=== PATIENT | male | born 1995 | race Caucasian/White ===

== ENCOUNTER 2018-12-28 21:35 | Inpatient (IN) | payer BC ==
[~2018-12-28] VITALS: Ht 177.8 cm; Wt 99.5 kg
[~2018-12-28 21:35] MED LIST: IBUP600T
[2018-12-28] MEDS ORDERED: PEG1POW PO (21:40)
[2018-12-28] MEDS ORDERED: ANUC25SU PR (21:40)
[2018-12-28] MEDS ORDERED: ACET-683 PO (21:40)
[2018-12-28] MEDS ORDERED: NS 1,000 ML IV ONE (23:00)
[2018-12-28] MEDS ORDERED: ACETAMINOPHEN TAB 650MG DOSE (2X325MG) PO ONE (23:00)
[2018-12-28 23:37] LABS: BASO # 0.1 10^3/uL (0.0-0.2); BASO % 0.3 % (0.0-1.0); EOS % 0.2 % (0.0-3.0); HEMATOCRIT 44.6 % (42.0-52.0); HEMOGLOBIN 15.9 g/dl (13.5-17.5); LYMPH % 8.9 % (24.0-44.0); MEAN CORPUSCULAR HEMOGLOBIN 32.5 pg (27.0-33.0); MEAN CORPUSCULAR HGB CONC 35.7 g/dl (32.0-36.5); MEAN CORPUSCULAR VOLUME 91.2 fl (80.0-96.0); MONO # 1.8 10^3/uL (0.0-0.8); NEUTROPHILS # 18.2 10^3/uL (1.8-7.7); PLATELET COUNT, AUTOMATED 323 10^3/uL (150-450); RED BLOOD COUNT 4.89 10^6/uL (4.30-6.10); WHITE BLOOD COUNT 22.2 10^3/uL (4.0-10.0)
[2018-12-29 00:01] LABS: ALBUMIN 4.2 GM/DL (3.2-5.2); ALT/SGPT 67 U/L (12-78); BILIRUBIN,DIRECT 0.2 MG/DL (0.0-0.2); BILIRUBIN,TOTAL 0.6 MG/DL (0.2-1.0); BLOOD UREA NITROGEN 12 MG/DL (7-18); CALCIUM LEVEL 9.1 MG/DL (8.5-10.1); CARBON DIOXIDE LEVEL 25 MEQ/L (21-32); CHLORIDE LEVEL 102 MEQ/L (98-107); CREATININE FOR GFR 0.92 MG/DL (0.70-1.30); GLOMERULAR FILTRATION RATE > 60.0 (>60); GLUCOSE, FASTING 87 MG/DL (70-100); LIPASE 115 U/L (73-393); POTASSIUM SERUM 4.1 MEQ/L (3.5-5.1); SODIUM LEVEL 136 MEQ/L (136-145); TOTAL PROTEIN 8.5 GM/DL (6.4-8.2)
[2018-12-29] MEDS ORDERED: ISOVUE-370 76% 100ML VIAL (Q9967) As Ordered ONE (00:08)
[2018-12-29] MEDS ORDERED: metroNIDAZOLE 500 MG in APPROPRIATE DILUENT 1 EA IV ONE (01:00)
[2018-12-29] MEDS ORDERED: LevoFLOXacin IV 750 MG in APPROPRIATE DILUENT 1 EA IV ONE (01:00)
--- NOTE | 2018-12-29 01:08 | REPVR ---
EXAM: CT Pelvis With Contrast EXAM DATE/TIME: 12/28/2018 11:01 PM CLINICAL HISTORY: 23 years old, male; Perianal pain; Additional info: R/O abscess TECHNIQUE: Imaging protocol: Axial computed tomography images of the pelvis with intravenous contrast. Coronal and sagittal reformatted images were created and reviewed. Radiation optimization: All CT scans at this facility use at least one of these dose optimization techniques: automated exposure control; mA and/or kV adjustment per patient size (includes targeted exams where dose is matched to clinical indication); or iterative reconstruction. Contrast volume: 100 ml; Contrast route: AC COMPARISON: No relevant prior studies available. FINDINGS: Stomach and bowel: The stomach was not imaged. The visualized small bowel and colon are unremarkable. Appendix: Normal. No evidence of appendicitis. Bladder: The partially distended urinary bladder is unremarkable. No stones or masses are seen in the bladder. Reproductive: The prostate gland and seminal vesicles are unremarkable. Intraperitoneal space: Unremarkable. No free air. No fluid collection. Lymph nodes: Normal. No enlarged lymph nodes. Bones/joints: There is no fracture or dislocation. The hip joints, sacroiliac joints, and pubic symphysis are unremarkable. There is no suspicious osteolytic or osteoblastic lesion. Soft tissues: There is a 1 cm x 3.7 cm x 3.3 cm perianal fluid collection located adjacent to the 6:30 o'clock position of the anus just to the right of the gluteal cleft with surrounding inflammatory fat stranding and overlying skin thickening, which is compatible with a perianal abscess (image 73 of the axial series 201 and images 81-82 of the coronal series 202). IMPRESSION: 1 cm x 3.7 cm x 3.3 cm perianal abscess as described above. Electronically signed by: Colton Ellsworth On 12/29/2018 01:07:15 AM
[2018-12-29] MEDS ORDERED: IBUPROFEN 800 MG TAB PO ONE (01:30)
[2018-12-29] MEDS ORDERED: KETOROLAC 30 MG/ML VIAL (J1885) IV ONE (02:00)
[2018-12-29] MEDS ORDERED: ACET-897 PO (02:16)
[2018-12-29] MEDS ORDERED: HYDR25SU23 PR (02:16)
[2018-12-29] MEDS ORDERED: MIRA1POW3 PO (02:16)
[2018-12-29] MEDS ORDERED: ACETAMINOPHEN TAB 650MG DOSE (2X325MG) PO PRN (02:45)
[2018-12-29] MEDS ORDERED: IBUPROFEN 800 MG TAB PO PRN (03:00)
[2018-12-29] MEDS ORDERED: KETOROLAC 30 MG/ML VIAL (J1885) IV PRN (03:15)
[2018-12-29] MEDS ORDERED: ACETAMINOPHEN 500 MG TAB PO PRN (03:15)
--- NOTE | 2018-12-29 03:24 | HPEPDOC ---
[facility] Medical History & Physical Date of Admission December 29, 2018 Date of Service: December 29, 2018 Attending Physician: MELANI CHAVEZ MD History and Physical CHIEF COMPLAINT: Anorectal abscess HISTORY OF PRESENT ILLNESS: Patient is a an otherwise healthy 23-year-old white male who presents to the emergency department complaining of one-week history increasing perineal pain and discomfort. He states that the pain became noticeable on 12/24/18. At that time, he noted that it was painful to ambulate or to sit. Pain is described as sharp and constant.. Throughout the subsequent days the patient's pain gradually increased even waking him from sleep. Stooling has also been quite difficult due to pain. Patient presented to urgent care on 12/26 and was treated for hemo rrhoids. The following days the patient's pain discomfort continued to increase. On the evening of 12/28/18 patient was noted to be febrile and subsequently presented to the emergency department for further evaluation. In the emergency department, basic labs revealed a leukocytosis of 22.2, a tempe rature of 100.8F. CT imaging indicated a perianal abscess. Patient was given ketorolac for pain control. I&D of the abscess was performed. No packing was placed. IV antibiotics with levofloxacin and metronidazole. The hospitalist team was contacted to the patient for further IV antibiotic therapy and surgical consult. PAST MEDICAL HISTORY: Patient denies any significant past medical history PAST SURGICAL HISTORY: Left ACL surgery, microfracture repair of the left knee SOCIAL HISTORY: Marital status: Single Resides in: Resides in [place] with his family Employment: Patient is currently employed Tobacco use: Denies any tobacco use ETOH: Denies alcohol use Illicit drug use: Denies illicit drug use FAMILY HISTORY: Noncontributory given patient's presenting complaint ALLERGIES: Please see below. REVIEW OF SYSTEMS: CONSTITUTIONAL: Patient reports a 1 day history of low-grade fevers. Denies any night sweats, chills, generalized fatigue, changes in weight HEENT: Patient denies any headaches, changes in vision, difficulty swallowing CARDIOVASCULAR: Has chest pain/discomfort, palpitations RESPIRATORY: Patient denies any shortness of breath, difficulty breathing, recent cough, no wheezing GASTROINTESTINAL: Reports intermittent nausea over the last 2 days, resolved upon admission. Denies any upset stomach or abdominal cramping, no diarrhea or constipation GENITOURINARY: Has any difficulty urinating SKIN: No new rashes or new/evolving skin lesions MUSCULOSKELETAL: No muscle or joint discomfort NEUROLOGICAL: Denies any numbness or tingling, weakness, focal neurologic deficits PSYCHIATRIC: Denies any psychiatric history HOME MEDICATIONS: Patient does not regular take home medications PHYSICAL EXAMINATION: VITAL SIGNS: Please see below. GENERAL APPEARANCE: She was interviewed and examined in the emergency department. Patient was found to be lying comfortably in his emergency bed wearing hospital clothing. His mother was at bedside. Patient was not in any acute distress. Patient was alert and oriented 3, able to answer questions appropriately and actively participate in his care. HEENT: Normocephalic, atraumatic, EOMI, mucous membranes moist, sclera nonicteric CARDIOVASCULAR: Regular rate and rhythm, normal S1 and S2, no murmurs gallops or rubs LUNGS: There are to auscultation bilaterally ABDOMEN: Soft, nontender, nondistended, bowel sounds present throughout PERINEAL: Patient is status post anorectal abscess incision and drainage. Gauze and dressings noted, minimal continued drainage. Surrounding erythema appreciated. Area is painful to palpation. EXTREMITIES: Patient is in to move all extremities extremities equally bilaterally NEUROLOGICAL: No focal neurologic deficits, she is at baseline mentation per mother was at bedside PSYCHIATRIC: Affect are appropriate given patient's current medical conditions LABORATORY DATA: See below. IMAGING: Pelvis CT (12/28/18): 1 cm x 3.7 cm x 3.3 cm perineal abscess with fluid collection located adjacent to the 6:30 o'clock position of the anus just right of the gluteal cleft with surrounding inflammatory fat stranding and overlying skin thickness. MICROBIOLOGY: Venous blood cultures are pending Abscess fluid culture pending Gram stain and wound culture pending ASSESSMENT: Patient is a 23-year-old, otherwise healthy, white male who presents emergency department with a one-week history of increasing perineal pain. In the emergency department patient received a pelvic CT which confirmed the presence of a perianal abscess. Patient underwent incision and drainage given IV antibiotics. Hospitalist team was contacted to admit the patient for further IV antibiotic therapy. Surgery was consulted and will be seeing the patient in the morning. PLAN: Perianal abscess -Abscess confirmed with pelvic CT imaging -CBC demonstrated a leukocytosis. Patient given levofloxacin and metronidazole in the emergency department -We will continue IV antibiotic therapy with Unasyn IV every 6, 1 cultures are pending which will allow for more targeted antibiotic therapy -Ibuprofen as needed for pain control -Surgery was consulted and will be in the patient in the morning DVT prophylaxis: Teds and sequentials CODE STATUS: Full code Vital Signs Vital Signs Date Time Temp Pulse Resp B/P (MAP) Pulse Ox O2 Delivery O2 Flow Rate FiO2 12/29/18 02:31 99.1 78 20 136/83 (100) 98 Room Air Laboratory Data Labs 24H Laboratory Tests 2 12/28/18 23:22: Immature Granulocyte % (Auto) 0.6, White Blood Count 22.2H, Red Blood Count 4.89, Hemoglobin 15.9, Hematocrit 44.6, Mean Corpuscular Volume 91.2, Mean Corpuscular Hemoglobin 32.5, Mean Corpuscular Hemoglobin Concent 35.7, Red Cell Distribution Width 12.2, Platelet Count 323, Neutrophils (%) (Auto) 82.0H, Lymphocytes (%) (Auto) 8.9L, Monocytes (%) (Auto) 8.0H, Eosinophils (%) (Auto) 0.2, Basophils (%) (Auto) 0.3, Neutrophils # (Auto) 18.2H, Lymphocytes # (Auto) 2.0, Monocytes # (Auto) 1.8H, Eosinophils # (Auto) 0.0, Basophils # (Auto) 0.1, Nucleated Red Blood Cells % (auto) 0.0, Anion Gap 9, Glomerular Filtration Rate > 60.0, Lactic Acid Level 1.1, Calcium Level 9.1, Aspartate Amino Transf (AST/SGOT) 38H, Alanine Aminotransferase (ALT/SGPT) 67, Alkaline Phosphatase 100, Total Bilirubin 0.6, Direct Bilirubin 0.2, Total Protein 8.5H, Albumin 4.2, Albumin/Globulin Ratio 0.98L, Lipase 115 12/28/18 23:24: Urine Color YELLOW, Urine Appearance CLEAR, Urine pH 5.0, Urine Specific [place] 1.027, Urine Protein NEGATIVE, Urine Glucose (UA) NEGATIVE, Urine Ketones 2+H, Urine Blood NEGATIVE, Urine Nitrite NEGATIVE, Urine Bilirubin NEGATIVE, Urine Urobilinogen 2.0H, Urine Leukocyte Esterase NEGATIVE, Urine WBC (Auto) 1, Urine RBC (Auto) 2, Urine Hyaline Casts (Auto) 0, Urine Bacteria (Auto) NEGATIVE, Urine Squamous Epithelial Cells 0, Urine Mucus (Auto) LARGE, Urine Sperm (Auto) CBC/BMP Laboratory Tests 12/28/18 23:22 Red Blood Count 4.89, Mean Corpuscular Volume 91.2, Mean Corpuscular Hemoglobin 32.5, Mean Corpuscular Hemoglobin Concent 35.7, Red Cell Distribution Width 12.2, Neutrophils (%) (Auto) 82.0 H, Lymphocytes (%) (Auto) 8.9 L, Monocytes (%) (Auto) 8.0 H, Eosinophils (%) (Auto) 0.2, Basophils (%) (Auto) 0.3, Neutrophils # (Auto) 18.2 H, Lymphocytes # (Auto) 2.0, Monocytes # (Auto) 1.8 H, Eosinophils # (Auto) 0.0, Basophils # (Auto) 0.1 Microbiology Microbiology 12/28/18 Blood Culture, Received Pending 12/28/18 Blood Culture, Received Pending 12/28/18 Anaerobic Culture, Received Pending 12/28/18 Gram Stain, Received Pending 12/28/18 Wound Culture, Received Pending Home Medications Scheduled Hydrocortisone Acetate (Hydrocortisone Acetate) 25 Mg Supp.rect, 25 MG DC BID Polyethylene Glycol 3350 (Miralax) 17 Gm Powd.pack, 17 GM PO DAILY Scheduled PRN Acetaminophen (Tylenol Extra Strength) 500 Mg Tablet, 1,000 MG PO Q6H PRN for PAIN / FEVER Allergies Coded Allergies: No Known Allergies (Verified , 04/22/09) A-FIB/CHADSVASC A-FIB History Current/History of A-Fib/PAF?: No GME ATTESTATION GME ATTESTATION My faculty preceptor for this patient encounter was physically present during the encounter and was fully available. All aspects of the patient interview, examination, medical decision making process, and medical care plan development were reviewed and approved by the faculty preceptor. The faculty preceptor is aware and concurs with the plan as stated in the body of this note and will attest to such by his/her cosignature. ATTENDING NOTE I have personally interviewed the patient and have done a physical examination. I have reviewed the resident's above documentation and agree with the assessment and plan. PHILLIP POLLARD DO December 29, 2018 03:24 MELANI CHAVEZ MD December 30, 2018 00:09
[2018-12-29] MEDS ORDERED: AMPICILLIN SOD/SULBACTAM SOD 1.5 GM in D5W MINI-BAG PLUS 50 ML IV SCH (04:00)
[2018-12-29 05:00] VITALS: BP 138/66
[2018-12-29 07:03] LABS: BASO # 0.1 10^3/uL (0.0-0.2); BASO % 0.3 % (0.0-1.0); EOS # 0.1 10^3/uL (0.0-0.50); EOS % 0.4 % (0.0-3.0); HEMATOCRIT 39.8 % (42.0-52.0); HEMOGLOBIN 14.1 g/dl (13.5-17.5); LYMPH # 2.1 10^3/uL (1.5-6.5); MEAN CORPUSCULAR HEMOGLOBIN 32.5 pg (27.0-33.0); MEAN CORPUSCULAR HGB CONC 35.4 g/dl (32.0-36.5); MEAN CORPUSCULAR VOLUME 91.7 fl (80.0-96.0); MONO # 1.6 10^3/uL (0.0-0.8); MONO % 9.2 % (0.0-5.0); NEUTROPHILS # 13.8 10^3/uL (1.8-7.7); NEUTROPHILS % 77.6 % (36.0-66.0); PLATELET COUNT, AUTOMATED 245 10^3/uL (150-450); RED BLOOD COUNT 4.34 10^6/uL (4.30-6.10); WHITE BLOOD COUNT 17.8 10^3/uL (4.0-10.0)
[2018-12-29 07:31] LABS: BLOOD UREA NITROGEN 11 MG/DL (7-18); CALCIUM LEVEL 8.6 MG/DL (8.5-10.1); CARBON DIOXIDE LEVEL 27 MEQ/L (21-32); CHLORIDE LEVEL 104 MEQ/L (98-107); CREATININE FOR GFR 0.86 MG/DL (0.70-1.30); GLOMERULAR FILTRATION RATE > 60.0 (>60); GLUCOSE, FASTING 91 MG/DL (70-100); POTASSIUM SERUM 3.9 MEQ/L (3.5-5.1); SODIUM LEVEL 137 MEQ/L (136-145)
[2018-12-29 08:00] VITALS: BP 130/74
[2018-12-29] MEDS: metroNIDAZOLE 500 MG in APPROPRIATE DILUENT 1 EA IV SCH ×2 (08:08→14:59)
--- NOTE | 2018-12-29 09:18 | IPNPDOC ---
Subjective Date Seen The patient was seen on 12/29/18. Subjective General: Denies: Chills Constitutional: Denies: Chills, Fever Pulmonary: Denies: Dyspnea Cardiovascular: Denies: Chest Pain, Palpitations, Lt Headedness Gastrointestinal: Denies: Nausea, Vomiting, Abdominal Pain, Diarrhea, Constipation, Melena, Hematochezia Musculoskeletal: Reports: Other Symptoms (denies neck stiffness); Denies: Neck Pain Neurological: Denies: Change in speech Other systems draining gluteal cleft abscess with drainage pus and blood mixed Objective Physical Examination General Exam: Positive: Alert, Cooperative, No Acute Distress Eye Exam: Positive: Conjunctiva & lids normal; Negative: Sclera icteric ENT Exam: Positive: Atraumatic, Mucous membr. moist/pink Neck Exam: Positive: Supple Chest Exam: Positive: Clear to auscultation, Normal air movement; Negative: Rales, Rhonchi, Wheezing Heart Exam: Positive: Rate Normal, Regular Rhythm, Normal S1, Normal S2; Negative: Murmurs Abdomen Exam: Positive: Normal bowel sounds, Soft; Negative: Tenderness Extremity Exam: Positive: Normal pulses Skin Exam: Positive: Nl turgor and temperature Neuro Exam: Positive: Normal Speech, Sensation Intact Psych Exam: Positive: Mental status NL, Mood NL, Memory Intact, Oriented x 3 A-FIB/CHADSVASC A-FIB History Current/History of A-Fib/PAF?: No VS, I&O, 24H, Fishbone Vital Signs/I&O Vital Signs Date Time Temp Pulse Resp B/P (MAP) Pulse Ox O2 Delivery O2 Flow Rate FiO2 12/29/18 08:00 97.5 60 18 130/74 (92) 98 12/29/18 04:24 Room Air I&O- Last 24 Hours up to 6 AM 12/29/18 06:00 Intake Total 0 ml Balance 0 ml Laboratory Data 24H LABS Laboratory Tests 2 12/28/18 23:22: Immature Granulocyte % (Auto) 0.6, White Blood Count 22.2H, Red Blood Count 4.89, Hemoglobin 15.9, Hematocrit 44.6, Mean Corpuscular Volume 91.2, Mean Corpuscular Hemoglobin 32.5, Mean Corpuscular Hemoglobin Concent 35.7, Red Cell Distribution Width 12.2, Platelet Count 323, Neutrophils (%) (Auto) 82.0H, Lymphocytes (%) (Auto) 8.9L, Monocytes (%) (Auto) 8.0H, Eosinophils (%) (Auto) 0.2, Basophils (%) (Auto) 0.3, Neutrophils # (Auto) 18.2H, Lymphocytes # (Auto) 2.0, Monocytes # (Auto) 1.8H, Eosinophils # (Auto) 0.0, Basophils # (Auto) 0.1, Nucleated Red Blood Cells % (auto) 0.0, Anion Gap 9, Glomerular Filtration Rate > 60.0, Lactic Acid Level 1.1, Calcium Level 9.1, Aspartate Amino Transf (AST/SGOT) 38H, Alanine Aminotransferase (ALT/SGPT) 67, Alkaline Phosphatase 100, Total Bilirubin 0.6, Direct Bilirubin 0.2, Total Protein 8.5H, Albumin 4.2, Albumin/Globulin Ratio 0.98L, Lipase 115 12/28/18 23:24: Urine Color YELLOW, Urine Appearance CLEAR, Urine pH 5.0, Urine Specific [place] 1.027, Urine Protein NEGATIVE, Urine Glucose (UA) NEGATIVE, Urine Ketones 2+H, Urine Blood NEGATIVE, Urine Nitrite NEGATIVE, Urine Bilirubin NEGATIVE, Urine Urobilinogen 2.0H, Urine Leukocyte Esterase NEGATIVE, Urine WBC (Auto) 1, Urine RBC (Auto) 2, Urine Hyaline Casts (Auto) 0, Urine Bacteria (Auto) NEGATIVE, Urine Squamous Epithelial Cells 0, Urine Mucus (Auto) LARGE, Urine Sperm (Auto) 12/29/18 06:43: Immature Granulocyte % (Auto) 0.5, White Blood Count 17.8H, Red Blood Count 4.34, Hemoglobin 14.1, Hematocrit 39.8L, Mean Corpuscular Volume 91.7, Mean Corpuscular Hemoglobin 32.5, Mean Corpuscular Hemoglobin Concent 35.4, Red Cell Distribution Width 12.0, Platelet Count 245, Neutrophils (%) (Auto) 77.6H, Lymphocytes (%) (Auto) 12.0L, Monocytes (%) (Auto) 9.2H, Eosinophils (%) (Auto) 0.4, Basophils (%) (Auto) 0.3, Neutrophils # (Auto) 13.8H, Lymphocytes # (Auto) 2.1, Monocytes # (Auto) 1.6H, Eosinophils # (Auto) 0.1, Basophils # (Auto) 0.1, Nucleated Red Blood Cells % (auto) 0.0, Anion Gap 6L, Glomerular Filtration Rate > 60.0, Calcium Level 8.6, Blood Urea Nitrogen 11, Creatinine 0.86, Sodium Level 137, Potassium Level 3.9, Chloride Level 104, Carbon Dioxide Level 27 CBC/BMP Laboratory Tests 12/28/18 23:22 Red Blood Count 4.89, Mean Corpuscular Volume 91.2, Mean Corpuscular Hemoglobin 32.5, Mean Corpuscular Hemoglobin Concent 35.7, Red Cell Distribution Width 12.2, Neutrophils (%) (Auto) 82.0 H, Lymphocytes (%) (Auto) 8.9 L, Monocytes (%) (Auto) 8.0 H, Eosinophils (%) (Auto) 0.2, Basophils (%) (Auto) 0.3, Neutrophils # (Auto) 18.2 H, Lymphocytes # (Auto) 2.0, Monocytes # (Auto) 1.8 H, Eosinophils # (Auto) 0.0, Basophils # (Auto) 0.1 12/29/18 06:43 Red Blood Count 4.34, Mean Corpuscular Volume 91.7, Mean Corpuscular Hemoglobin 32.5, Mean Corpuscular Hemoglobin Concent 35.4, Red Cell Distribution Width 12.0, Neutrophils (%) (Auto) 77.6 H, Lymphocytes (%) (Auto) 12.0 L, Monocytes (%) (Auto) 9.2 H, Eosinophils (%) (Auto) 0.4, Basophils (%) (Auto) 0.3, Neutrophils # (Auto) 13.8 H, Lymphocytes # (Auto) 2.1, Monocytes # (Auto) 1.6 H, Eosinophils # (Auto) 0.1, Basophils # (Auto) 0.1, Calcium Level 8.6 Microbiology Microbiology 12/28/18 Blood Culture, Received Pending 12/28/18 Blood Culture, Received Pending 12/28/18 Anaerobic Culture, Received Pending 12/28/18 Gram Stain, Received Pending 12/28/18 Wound Culture, Received Pending OSMEL CUETO DO December 29, 2018 09:18
[2018-12-29] MEDS: AMPICILLIN SOD/SULBACTAM SOD 1.5 GM in D5W MINI-BAG PLUS 50 ML IV SCH ×3 (10:11→21:29)
--- NOTE | 2018-12-29 10:14 | IPNPDOC ---
Text Note Date of Service The patient was seen on 12/29/18. NOTE Patient seen this morning. He was admitted last night for fever from perianal abscess/sepsis. It looks like the abscess started spontaneously draining last night and the emergency room provider was able to squeeze out the bulk of the abscess from the right perianal area. Still some leftover cellulitis and mild induration on the right gluteal area but not much drainage left. I was placing pressure around the tiny opening and not able to express any further significant drainage anymore. At this point, I think the abscess even though the opening is small is sufficiently drained. The only draw back I could see is that the tiny opening may close too fast and allow the fluid to reaccumulate. If it does happen, he can follow up in our clinic for I&D at that time. Continue with abx and warm sitz bath. If fever resolves, may go home on po antibiotics and warm sitz bath bid and after bms. VS,Fishbone, I+O VS, Fishbone, I+O Laboratory Tests 12/28/18 23:22 Red Blood Count 4.89, Mean Corpuscular Volume 91.2, Mean Corpuscular Hemoglobin 32.5, Mean Corpuscular Hemoglobin Concent 35.7, Red Cell Distribution Width 12.2, Neutrophils (%) (Auto) 82.0 H, Lymphocytes (%) (Auto) 8.9 L, Monocytes (%) (Auto) 8.0 H, Eosinophils (%) (Auto) 0.2, Basophils (%) (Auto) 0.3, Neutrophils # (Auto) 18.2 H, Lymphocytes # (Auto) 2.0, Monocytes # (Auto) 1.8 H, Eosinophils # (Auto) 0.0, Basophils # (Auto) 0.1 12/29/18 06:43 Red Blood Count 4.34, Mean Corpuscular Volume 91.7, Mean Corpuscular Hemoglobin 32.5, Mean Corpuscular Hemoglobin Concent 35.4, Red Cell Distribution Width 12.0, Neutrophils (%) (Auto) 77.6 H, Lymphocytes (%) (Auto) 12.0 L, Monocytes (%) (Auto) 9.2 H, Eosinophils (%) (Auto) 0.4, Basophils (%) (Auto) 0.3, Neutrophils # (Auto) 13.8 H, Lymphocytes # (Auto) 2.1, Monocytes # (Auto) 1.6 H, Eosinophils # (Auto) 0.1, Basophils # (Auto) 0.1, Calcium Level 8.6 Vital Signs Date Time Temp Pulse Resp B/P (MAP) Pulse Ox O2 Delivery O2 Flow Rate FiO2 12/29/18 08:00 97.5 60 18 130/74 (92) 98 12/29/18 04:24 Room Air I&O- Last 24 Hours up to 6 AM 12/29/18 06:00 Intake Total 0 ml Balance 0 ml RAMIREZ LABOY MD December 29, 2018 10:14
--- NOTE | 2018-12-29 11:12 | IPNPDOC ---
Text Note Date of Service The patient was seen on 12/29/18. NOTE HISTORY OF PRESENT ILLNESS: Patient is a 23 year old male with no significant PMH presented to [facility] ER due to increasing perineal pain and discomfort for one week history, reported pain became noticeable on 12/24/18. Reported sharp constant pain aggravated by press ure, ambulating, or sitting. Pain gradually increased even woke him up from sleep. Stooling has also been quite difficult due to pain. He went to urgent care on 12/26 and was treated for hemorrhoids. His pain/ discomfort continued to increase, and on 12/28/18 evening he was noted to be febrile. Pt had intermittent nausea for 2 days which had resolved at admission. It was noted that a bulk of abscess was drained in ER. Family reported that the drainage contains mix of blood and pus. Pt reported that he has not had a bowel movement since the abscess started draining. Denies any fever, chills, nausea, vomiting, or neck pain/stiffness. REVIEW OF SYSTEMS: CONSTITUTIONAL: Denies any fever, chills, dizziness, or lightheadedness HEENT: Patient denies any headaches, neck pain, or neck stiffness CARDIOVASCULAR: Denies chest pain or palpitations RESPIRATORY: Patient denies any shortness of breath or dyspnea GASTROINTESTINAL:Denies nausea, abdominal pain, diarrhea, or constipation SKIN: Anorectal/Gluteal cleft draining abscess NEUROLOGICAL: Denies any numbness or tingling, neck stiffness or neck pain PHYSICAL EXAMINATION: VITAL SIGNS: Please see below. GENERAL APPEARANCE: Alert and awake. Both parents were at bedside. Cooperative HEENT: Normocephalic, atraumatic, mucous membranes moist, conjunctiva and lids grossly normal. CARDIOVASCULAR: Regular rate and rhythm, normal S1 and S2, no murmurs gallops or rubs LUNGS: There are to auscultation bilaterally ABDOMEN: Soft, non-tender, no guarding or distention, bowel sounds present in all quadrant PERINEAL: Anorectal abscess in gluteal cleft covered with gauze; drainage observed on gauze with trace amount of blood and pus. Surrounding erythema noted. NEUROLOGICAL: A&OX3 PSYCHIATRIC: Affect are appropriate given patient's current medical conditions Assessment and Plan: Rectal pain - likely 2/2 Anorectal abscess - Abscess in midline gluteal cleft, noted to be spontaneously draining last night; s/p I&D in ER. Fluid cx pending. Family reported drainage include blood and pus. - CT pelvis showed 1 cm x 3.7 cm x 3.3 cm perianal abscess adjacent to the 6:30 o'clock position of the anus just to the right of the gluteal cleft - Leukocytosis trending down - Cultures remain pending - S/P I&D in ER. Gauze covering the abscess noted to have trace amt of blood/ pus, d/t its proximity to anus, wound care was ordered. - Received levofloxacin and metronidazole in the emergency department - c/w Unasyn; Will discontinue Flagyl - Surgery was consulted; if pt remains afebrile, may complete oral antibiotics as an outpatient, warm sitz bath bid, and after bms. - c/w Ibuprofen, Tylenol and Sitz Bath PRN DVT prophylaxis - c/w RAMONE/Sequentials A-FIB/CHADSVASC A-FIB History Current/History of A-Fib/PAF?: No VS,Fishbone, I+O VS, Fishbone, I+O Laboratory Tests 12/28/18 23:22 Red Blood Count 4.89, Mean Corpuscular Volume 91.2, Mean Corpuscular Hemoglobin 32.5, Mean Corpuscular Hemoglobin Concent 35.7, Red Cell Distribution Width 12.2, Neutrophils (%) (Auto) 82.0 H, Lymphocytes (%) (Auto) 8.9 L, Monocytes (%) (Auto) 8.0 H, Eosinophils (%) (Auto) 0.2, Basophils (%) (Auto) 0.3, Neutrophils # (Auto) 18.2 H, Lymphocytes # (Auto) 2.0, Monocytes # (Auto) 1.8 H, Eosinophils # (Auto) 0.0, Basophils # (Auto) 0.1 12/29/18 06:43 Red Blood Count 4.34, Mean Corpuscular Volume 91.7, Mean Corpuscular Hemoglobin 32.5, Mean Corpuscular Hemoglobin Concent 35.4, Red Cell Distribution Width 12.0, Neutrophils (%) (Auto) 77.6 H, Lymphocytes (%) (Auto) 12.0 L, Monocytes (%) (Auto) 9.2 H, Eosinophils (%) (Auto) 0.4, Basophils (%) (Auto) 0.3, Neutrophils # (Auto) 13.8 H, Lymphocytes # (Auto) 2.1, Monocytes # (Auto) 1.6 H, Eosinophils # (Auto) 0.1, Basophils # (Auto) 0.1, Calcium Level 8.6 Vital Signs Date Time Temp Pulse Resp B/P (MAP) Pulse Ox O2 Delivery O2 Flow Rate FiO2 12/29/18 08:00 97.5 60 18 130/74 (92) 98 12/29/18 04:24 Room Air I&O- Last 24 Hours up to 6 AM 12/29/18 06:00 Intake Total 0 ml Balance 0 ml GME ATTESTATION GME ATTESTATION My faculty preceptor for this patient encounter was physically present during the encounter and was fully available. All aspects of the patient interview, examination, medical decision making process, and medical care plan development were reviewed and approved by the faculty preceptor. The faculty preceptor is aware and concurs with the plan as stated in the body of this note and will attest to such by his/her cosignature. ATTENDING NOTE I, Fara Kennedy, have both independently examined this patient as well as reviewed the documentation. I have discussed in detail with the resident the findings and plan of treatment as documented by the resident. I agree with their findings and treatment plan. I will continue to follow the patient and offer further guidance to the patients care as necessary during this hospital stay. OSMEL CUETO DO December 29, 2018 11:12 FARA KENNEDY MD December 29, 2018 16:06
[2018-12-29 16:00] VITALS: BP 118/57
[2018-12-29 20:20] VITALS: BP 132/69
[2018-12-30 00:25] VITALS: BP 133/61
[2018-12-30] MEDS: AMPICILLIN SOD/SULBACTAM SOD 1.5 GM in D5W MINI-BAG PLUS 50 ML IV SCH (03:30)
[2018-12-30 04:00] VITALS: BP 132/92
[2018-12-30 06:52] LABS: HEMATOCRIT 42.3 % (42.0-52.0); HEMOGLOBIN 14.6 g/dl (13.5-17.5); MEAN CORPUSCULAR HEMOGLOBIN 32.2 pg (27.0-33.0); MEAN CORPUSCULAR HGB CONC 34.5 g/dl (32.0-36.5); MEAN CORPUSCULAR VOLUME 93.4 fl (80.0-96.0); PLATELET COUNT, AUTOMATED 277 10^3/uL (150-450); RED BLOOD COUNT 4.53 10^6/uL (4.30-6.10); WHITE BLOOD COUNT 8.5 10^3/uL (4.0-10.0)
[2018-12-30 07:19] LABS: BLOOD UREA NITROGEN 13 MG/DL (7-18); C REACTIVE PROTEIN QUANTITATIV 7.33 MG/DL (0.00-0.30); CALCIUM LEVEL 8.5 MG/DL (8.5-10.1); CARBON DIOXIDE LEVEL 29 MEQ/L (21-32); CHLORIDE LEVEL 107 MEQ/L (98-107); CREATININE FOR GFR 0.86 MG/DL (0.70-1.30); GLOMERULAR FILTRATION RATE > 60.0 (>60); GLUCOSE, FASTING 97 MG/DL (70-100); POTASSIUM SERUM 4.6 MEQ/L (3.5-5.1); SODIUM LEVEL 140 MEQ/L (136-145)
[2018-12-30 08:00] VITALS: BP 109/57
[2018-12-30] MEDS ORDERED: AUGM875T28 PO (08:39)
--- NOTE | 2018-12-30 16:45 | DS.PDOC ---
Discharge Summary General Date of Admission December 29, 2018 at 03:09 Date of Discharge 12/30/18 Discharge Summary PROCEDURES PERFORMED DURING STAY: Drainage of anorectal abscess in ER ADMITTING DIAGNOSES / DISCHARGE DIAGNOSES: 1. Anorectal abscess COMPLICATIONS/CHIEF COMPLAINT: Rectal pain HISTORY OF PRESENT ILLNESS: Patient is a 23 year old male with no significant PMH presented to [facility] ER due to increasing perineal pain and discomfort for one week history, reported pain became noticeable on 12/24/18. Reported sharp constant pain aggravated by pressure, ambulating, or sitting. Pain gradually increased even woke him up from sleep. Stooling has also been quite difficult due to pain. He went to urgent care on 12/26 and was treated for hemorrhoids. His pain/ discomfort continued to increase, and on 12/28/18 evening he was noted to be febrile. Pt had intermittent nausea for 2 days which had resolved at admission. HOSPITAL COURSE: Pt underwent drainage of the abscess in ER, and it was noted that a bulk of abscess was drained. Family reported that the drainage contains mix of blood and pus. He received IV levofloxacin and Flagyl in ER, and was started on IV Unasyn and Flagyl as an inpatient; flagyl was later d/c. Surgery team was consulted, and noted that the abscess may be sufficiently drained. Pt reported that having BM but with careful cleaning with wipes stool did not get in abscess opening. On 12/30/18 morning, pt denied fever, chills, nausea, vomiting. Pt was cleared by surgery team for discharge. He will complete antibiotics as an outpatient. DISCHARGE MEDICATIONS: Please see below. ALLERGIES: Please see below. PHYSICAL EXAMINATION ON DISCHARGE: VITAL SIGNS: Please see below. GENERAL: alert and awake, pleasant, cooperative, not in acute distress HEENT: Head normocephalic, atraumatic, mucous membrane moist and pink NECK: supple CARDIOVASCULAR EXAMINATION: RRR, no murmur, normal S1 and S2 RESPIRATORY EXAMINATION: CTA b/l, no rales, wheezing, or rhonchi ABDOMINAL EXAMINATION: Bowel sound aus in all 4 quadrants, soft, no tenderness, no guarding or distention SKIN: Mildly erythematous buttock cheek on right; draining abscess with trace amount of blood on covering gauze NEUROLOGICAL EXAMINATION: A&OX3, memory and cognitive function intact PSYCHIATRIC EXAMINATION: Appropriate to situation LABORATORY DATA: Please see below. IMAGING: CT pelvis with contrast showed 1 cm x 3.7 cm x 3.3 cm perianal abscess PROGNOSIS: Good ACTIVITY: [As tolerated]. DIET: As tolerated DISCHARGE PLAN AND INSTRUCTIONS: 1. Pt will be complete Augmentin 875-125mg BID for 7 days 2. Warm sitz bath bid and after bms 3. Outpatient I&D with surgery team for anorectal abscess if still present after completing of oral antibiotics 4. Remain compliant with medications 5. Return to the ER if you experience any problems ITEMS TO FOLLOWUP ON ON OUTPATIENT: 1. Anorectal abscess DISCHARGE CONDITION: [Stable]. TIME SPENT ON DISCHARGE: Greater than 40 minutes Vital Signs/I&Os Vital Signs Date Time Temp Pulse Resp B/P (MAP) Pulse Ox O2 Delivery O2 Flow Rate FiO2 12/30/18 08:00 97.0 60 18 109/57 (74) 97 12/29/18 04:24 Room Air I&O- Last 24 Hours up to 6 AM 12/30/18 06:00 Intake Total 1290 ml Output Total 800 ml Balance 490 ml Laboratory Data Labs 24H Laboratory Tests 2 12/30/18 06:30: Nucleated Red Blood Cells % (auto) 0.0, Anion Gap 4L, Glomerular Filtration Rate > 60.0, Blood Urea Nitrogen 13, Creatinine 0.86, Sodium Level 140, Potassium Level 4.6, Chloride Level 107, Carbon Dioxide Level 29, Calcium Level 8.5, C-Re active Protein, Quantitative 7.33H CBC/BMP Laboratory Tests 12/30/18 06:30 Red Blood Count 4.53, Mean Corpuscular Volume 93.4, Mean Corpuscular Hemoglobin 32.2, Mean Corpuscular Hemoglobin Concent 34.5, Red Cell Distribution Width 12.3, Calcium Level 8.5 Microbiology Microbiology 12/28/18 Blood Culture - Preliminary, Resulted No growth after 24 hours . All specim... 12/28/18 Blood Culture - Preliminary, Resulted No growth after 24 hours . All specim... 12/28/18 Anaerobic Culture, Received Pending 12/28/18 Gram Stain - Final, Resulted 12/28/18 Wound Culture, Resulted Pending Discharge Medications Scheduled Amoxicillin/Potassium Clav (Augmentin 875-125 Tablet) 1 Each Tablet, 1 TAB PO BID Polyethylene Glycol 3350 (Miralax) 17 Gm Powd.pack, 17 GM PO DAILY, (Reported) Scheduled PRN Acetaminophen (Tylenol Extra Strength) 500 Mg Tablet, 1,000 MG PO Q6H PRN for PAIN / FEVER, (Reported) Allergies Coded Allergies: No Known Allergies (Verified , 04/22/09) GME ATTESTATION GME ATTESTATION My faculty preceptor for this patient encounter was physically present during the encounter and was fully available. All aspects of the patient interview, examination, medical decision making process, and medical care plan development were reviewed and approved by the faculty preceptor. The faculty preceptor is aware and concurs with the plan as stated in the body of this note and will attest to such by his/her cosignature. ATTENDING NOTE I, Fara Kennedy, have both independently examined this patient as well as reviewed the documentation. I have discussed in detail with the resident the findings and plan of treatment as documented by the resident. I agree with their findings and treatment plan. I will continue to follow the patient and offer further guidance to the patients care as necessary during this hospital stay. Time spent on discharge 34 minutes OSMEL CUETO DO December 30, 2018 16:45 FARA KENNEDY MD December 30, 2018 19:44
== END 2018-12-30 10:05 | disposition home or self-care (01) | DRG 254 ==
LOC: M ED 21:35 → M ED INP 12-29 03:09 → M PED 12-29 04:30
PROVIDERS: ADMIT Internal Medicine Nephrology; ATTEND Internal Medicine
DX: K61.2 Anorectal abscess (principal)

== ENCOUNTER → 2020-06-27 | Outpatient (REF) | payer BC ==
[~2020-06-27] MED LIST changes: +ACET-683 PO; +ACET-897 PO; +ANUC25SU PR; +AUGM875T28 PO; +HYDR25SU23 PR; +MIRA1POW3 PO; +PEG1POW PO
[2020-06-27 15:39] LABS: BASO # 0.1 10^3/uL (0.0-0.2); BASO % 0.7 % (0.0-1.0); EOS # 0.1 10^3/uL (0.0-0.5); EOS % 0.8 % (0.0-3.0); HEMATOCRIT 47.1 % (42.0-52.0); HEMOGLOBIN 15.6 g/dl (13.5-17.5); LYMPH # 2.3 10^3/uL (1.5-5.0); LYMPH % 26.7 % (24.0-44.0); MEAN CORPUSCULAR HEMOGLOBIN 30.6 pg (27.0-33.0); MEAN CORPUSCULAR HGB CONC 33.1 g/dl (32.0-36.5); MEAN CORPUSCULAR VOLUME 92.4 fl (80.0-96.0); MONO # 0.6 10^3/uL (0.0-0.8); MONO % 7.5 % (0.0-5.0); NEUTROPHILS # 5.4 10^3/uL (1.5-8.5); NEUTROPHILS % 64.1 % (36.0-66.0); PLATELET COUNT, AUTOMATED 296 10^3/uL (150-450); WHITE BLOOD COUNT 8.4 10^3/uL (4.0-10.0)
[2020-06-27 16:02] LABS: ERYTHROCYTE SEDIMENTATION RATE 1 mm/hr (0-15)
[2020-06-27 16:12] LABS: ALBUMIN 4.5 GM/DL (3.2-5.2); ALT/SGPT 20 U/L (12-78); BILIRUBIN,TOTAL 0.7 MG/DL (0.2-1.0); BLOOD UREA NITROGEN 15 MG/DL (7-18); CALCIUM LEVEL 9.3 MG/DL (8.5-10.1); CARBON DIOXIDE LEVEL 30 MEQ/L (21-32); CHLORIDE LEVEL 105 MEQ/L (98-107); CREATININE FOR GFR 0.88 MG/DL (0.70-1.30); GLOMERULAR FILTRATION RATE > 60.0 (>60); GLUCOSE, FASTING 82 MG/DL (70-100); LIPASE 255 U/L (73-393); POTASSIUM SERUM 4.5 MEQ/L (3.5-5.1); SODIUM LEVEL 139 MEQ/L (136-145); TOTAL PROTEIN 7.6 GM/DL (6.4-8.2)
== END ==
LOC: M SFHCPLAZ 12:21
PROVIDERS: ATTEND Physician Assistant
DX: K21.9 Gastro-esophageal reflux disease without esophagitis (principal); R11.0 Nausea; K58.9 Irritable bowel syndrome, unspecified

== ENCOUNTER → 2020-10-19 | Outpatient (CLI) | payer BC ==
[~2020-10-19] MED LIST changes: +OMEP-221; -PEG1POW PO; +POLY17PO10 PO
== END ==
LOC: M LABSMTC 08:42
PROVIDERS: ATTEND Anesthesiology
DX: Z01.812 Encounter for preprocedural laboratory examination (principal); Z20.822 Contact with and (suspected) exposure to COVID-19

== ENCOUNTER 2020-10-24 11:42 | Day surgery (SDC) | payer BC ==
[~2020-10-24] VITALS: Ht 177.8 cm; Wt 83.5 kg
[~2020-10-24 11:42] MED LIST changes: +NS 1,000 ML IV ONE
[2020-10-24] MEDS ORDERED: fentaNYL 100 MCG/2 ML INJECTION (J3010) As Ordered ONE (13:24)
[2020-10-24] MEDS ORDERED: propofoL 200 MG/20 ML VIAL As Ordered ONE (13:57)
[2020-10-24] MEDS ORDERED: LIDOCAINE 2% 100MG/5ML SDV (FOR ANES.) As Ordered ONE (13:58)
--- NOTE | 2020-10-24 14:47 | ROOR ---
Patient Name: Sanjiv Mccoy Procedure Date: 10/24/2020 2:13 PM Date of : 1995 Age: 25 Room: [facility] Gender: Male Note Status: Finalized Procedure: Upper GI endoscopy Indications: Heartburn, Suspected esophageal reflux, Hematemesis Providers: Dimitrios Brock MD Referring MD: No Pcp Requesting Provider: Medicines: Monitored Anesthesia Care Complications: No immediate complications. Procedure: Pre-Anesthesia Assessment: - Prior to the procedure, a History and Physical was performed, and patient medications and allergies were reviewed. The patient is competent. The risks and benefits of the procedure and the sedation options and risks were discussed with the patient. All questions were answered and informed consent was obtained. Patient identification and proposed procedure were verified by the physician, the nurse and the anesthesiologist in the procedure room. Mental Status Examination: alert and oriented. Airway Examination: normal oropharyngeal airway and neck mobility. Respiratory Examination: clear to auscultation. CV Examination: normal. Prophylactic Antibiotics: The patient does not require prophylactic antibiotics. Prior Anticoagulants: The patient has taken no previous anticoagulant or antiplatelet agents. ASA Grade Assessment: II - A patient with mild systemic disease. After reviewing the risks and benefits, the patient was deemed in satisfactory condition to undergo the procedure. The anesthesia plan was to use no sedation or anesthesia. Immediately prior to administration of medications, the patient was re-assessed for adequacy to receive sedatives. The heart rate, respiratory rate, oxygen saturations, blood pressure, adequacy of pulmonary ventilation, and response to care were monitored throughout the procedure. The physical status of the patient was re-assessed after the procedure. The Endoscope was introduced through the mouth, and advanced to the second part of duodenum. The upper GI endoscopy was accomplished without difficulty. The patient tolerated the procedure well. Findings: The Z-line was irregular and was found 42 cm from the incisors. Scattered mild inflammation characterized by erythema and granularity was found in the gastric antrum. Biopsies were taken with a cold forceps for Helicobacter pylori testing. Verification of patient identification for the specimen was done by the physician and nurse using the patient's name, date and medical record number. Estimated blood loss was minimal. The duodenal bulb and second portion of the duodenum were normal. Impression: - Z-line irregular, 42 cm from the incisors. - Gastritis. Biopsied. - Normal duodenal bulb and second portion of the duodenum. Recommendation: - Patient has a contact number available for emergencies. The signs and symptoms of potential delayed complications were discussed with the patient. Return to normal activities tomorrow. Written discharge instructions were provided to the patient. - Anti-acid reflux diet -- small meals, sit upright atleast 1 hour after meals, avoid fatty/ oily foods and avoid foods that cause reflux. - Continue present medications. - Await pathology results. - Telephone GI clinic for pathology results in 2 weeks. - Follow an antireflux regimen. - Return to primary care physician. Procedure Code(s): --- Professional --- 84022, Esophagogastroduodenoscopy, flexible, transoral; with biopsy, single or multiple Diagnosis Code(s): --- Professional --- K22.8, Other specified diseases of esophagus K29.70, Gastritis, unspecified, without bleeding R12, Heartburn K92.0, Hematemesis CPT copyright 2019 [employer]. All rights reserved. The codes documented in this report are preliminary and upon cash shortage investigator review may be revised to meet current compliance requirements. Dimitrios Brock MD Dimitrios Brock MD 10/24/2020 2:47:20 PM Electronically signed by Dimitrios Brock MD Number of Addenda: 0 Note Initiated On: 10/24/2020 2:13 PM Estimated Blood Loss: Estimated blood loss was minimal.
[2020-10-24 14:59] VITALS: BP 113/53
== END 2020-10-24 15:05 | disposition home or self-care (01) ==
LOC: M OPP 11:42
PROVIDERS: ATTEND Internal Medicine Gastroenterology
DX: K22.8 Other specified diseases of esophagus (principal); K29.70 Gastritis, unspecified, without bleeding; R12 Heartburn; K92.0 Hematemesis; K21.9 Gastro-esophageal reflux disease without esophagitis
CPT/HCPCS: 43239; 88305; J3010

== ENCOUNTER 2023-08-12 10:23 | Emergency (ER) | payer BC, OTHER ==
[~2023-08-12] VITALS: Ht 180.3 cm; Wt 93.2 kg
[~2023-08-12 10:23] MED LIST changes: -HYDR25SU23 PR; +HYDR25SU61 PR; -NS 1,000 ML IV ONE; -OMEP-221; +OMEP40CA5
[2023-08-12 11:09] LABS: BASO % 0.5 % (0.0-1.0); EOS # 0.1 10^3/uL (0.0-0.5); EOS % 0.7 % (0.0-3.0); HEMATOCRIT 44.9 % (42.0-52.0); LYMPH # 1.5 10^3/uL (1.5-5.0); LYMPH % 17.4 % (24.0-44.0); MEAN CORPUSCULAR HEMOGLOBIN 31.6 pg (27.0-33.0); MEAN CORPUSCULAR HGB CONC 35.6 g/dl (32.0-36.5); MEAN CORPUSCULAR VOLUME 88.6 fl (80.0-96.0); MONO # 0.4 10^3/uL (0.0-0.8); MONO % 4.2 % (2.0-8.0); NEUTROPHILS # 6.8 10^3/uL (1.5-8.5); PLATELET COUNT, AUTOMATED 291 10^3/uL (150-450); RED BLOOD COUNT 5.07 10^6/uL (4.30-6.10); WHITE BLOOD COUNT 8.9 10^3/uL (4.0-10.0)
[2023-08-12 11:38] LABS: LIPASE 31 U/L (12-53)
[2023-08-12 11:40] LABS: ALBUMIN 4.5 G/DL (3.2-5.2); ALKALINE PHOSPHATASE 66 U/L (46-116); ALT/SGPT 35 U/L (7.0-40); AST/SGOT 20 U/L (<34); BILIRUBIN,DIRECT 0.2 MG/DL (<0.4); BILIRUBIN,TOTAL 0.6 MG/DL (0.3-1.2); BLOOD UREA NITROGEN 13 MG/DL (9-23); CALCIUM LEVEL 9.3 MG/DL (8.5-10.1); CARBON DIOXIDE LEVEL 28 MMOL/L (20-31); CHLORIDE LEVEL 105 MMOL/L (98-107); CREATININE FOR GFR 0.74 MG/DL (0.70-1.30); GLOMERULAR FILTRATION RATE > 60.0 (>60); GLUCOSE, FASTING 105 MG/DL (60-100); POTASSIUM SERUM 4.3 MMOL/L (3.5-5.1); SODIUM LEVEL 138 MMOL/L (136-145); TOTAL PROTEIN 7.3 G/DL (5.7-8.2)
[2023-08-12] MEDS ORDERED: ONDA4TAB6 PO (13:55)
[2023-08-12] MEDS ORDERED: OMEP40CA4 PO (13:55)
[2023-08-12 14:03] VITALS: BP 140/84; TEMP 98.3; O2SAT 98
== END 2023-08-12 14:04 | disposition home or self-care (01) ==
LOC: M ED 10:23
DX: K21.9 Gastro-esophageal reflux disease without esophagitis (principal); F12.10 Cannabis abuse, uncomplicated; F10.10 Alcohol abuse, uncomplicated; Z87.891 Personal history of nicotine dependence; Z79.83 Long term (current) use of bisphosphonates; Z79.899 Other long term (current) drug therapy